=== PATIENT | male | born 1985 | race Two or more races ===

== ENCOUNTER → 2021-09-27 08:00 | Outpatient (CLI) | payer OTHER | END | disposition home or self-care (01) | LOC: ADM 07:00 → LAB 08:00 → CIR.AMB 10-01 07:00 → EDSEX 10-01 07:00 → EDSTATUS 10-01 07:00 | PROVIDERS: ATTEND Surgery | DX: K36 Other appendicitis (principal); I10 Essential (primary) hypertension; Z03.818 Encounter for observation for suspected exposure to other biological agents ruled out ==

== ENCOUNTER 2021-09-30 09:54 | Outpatient (CLI) | payer OTHER | END 2021-09-30 14:23 | disposition home or self-care (01) | LOC: TOM 09:54 | PROVIDERS: ATTEND Surgery | DX: K36 Other appendicitis (principal) ==